=== PATIENT | male | born 1970 | race Caucasian/White ===

== ENCOUNTER 2021-08-13 09:40 | Day surgery (SDC) | payer BC ==
[~2021-08-13 09:40] MED LIST: Acetaminophen 325 MG Tab PO SCH; Lactated Ringers 1,000 ML IV SCH; Lidocaine 1%/Sod Bicarbonate in NS 8.4% 1 ML Syringe IDERM PRN; Midazolam 1 MG/ML 2 ML SDV ONE; Morphine 8 MG, EPINEPHrine 0.3 MG, Cefuroxime 750 MG, Ketorolac 30 MG, Sodium Chloride ... PRN; Pregabalin 25 MG Cap PO SCH; Propofol 200 MG/20 ML SDV ONE; Sodium Chloride 0.9% 10 ML Syringe FLUSH PRN; ceFAZolin 1 GM Vial ONE; fentaNYL 100 MCG/2 ML SDV ONE; oxyCODONE ER 10 MG TAB.ER PO SCH
--- NOTE | 2021-08-13 10:14 | PCM.PREANE ---
Preanesthetic Assessment - Procedure Proposed Procedure: Right total hip arthroplasty - Anesthesia/Transfusion/Family Hx Anesthesia History: Prior Anesthesia Without Reaction Family History of Anesthesia Reaction: No Transfusion History: No Prior Transfusion(s) Intubation History: Unknown - Review of Systems General: No Symptoms Pulmonary: No Symptoms Cardiovascular: No Symptoms Gastrointestinal: No Symptoms Neurological: No Symptoms Other: Reports: Diabetes - Physical Assessment NPO Status Date: 08/12/21 NPO Status Time: 20:00 Vital Signs: 133/93 HR 74 97.4 RR 20 96% RA Height: 1.98 m Weight: 149.7 kg ASA Class: 2 Mental Status: Alert & Oriented x3 Airway Class: Mallampati = 2 Dentition: Reports: [place]aboo(s), Caries Thyro-Mental Finger Breadths: 3 Mouth Opening Finger Breadths: 3 ROM/Head Extension: Full Lungs: Clear to Auscultation, Normal Respiratory Effort Cardiovascular: Regular Rate, Regular Rhythm, No Murmurs - Lab Values: Labs reviewed and okay to proceed - Imaging/EKG Impressions: EKG NSR HR 78 Chest x-ray 07/26/21 no active disease - Allergies Allergies/Adverse Reactions: Allergies Allergy/AdvReac Type Severity Reaction Status Date / Time allopurinol Allergy Cannot Verified 08/10/21 13:40 Remember - Anesthesia Plan Med Last Dose Date: 08/13/21 - Acknowledgements Anesthesia Type Planned: General Anesthesia, Spinal Pt an Appropriate Candidate for the Planned Anesthesia: Yes Alternatives and Risks of Anesthesia Discussed w Pt/Guardian: Yes Pt/Guardian Understands and Agrees with Anesthesia Plan: Yes PreAnesthesia Questionnaire HEENT History: Reports: Impaired Vision Cardiovascular History: Reports: Blood Clots/VTE/DVT, High Cholesterol, Hypertension Other Cardiovascular History: hx DVT LLE 2014, not on any blood thinners Respiratory History: Reports: None Gastrointestinal History: Reports: GERD (well controlled), Other (See Below) (hyponatremia) Other Genitourinary History: Erectile dysfunction Musculoskeletal History: Reports: Gout Neurological History: Reports: Cerebral Palsy Psychiatric History: Reports: None Endocrine/Metabolic History: Reports: Diabetes, Type II Hematologic History: Reports: None Immunologic History: Reports: None Oncologic (Cancer) History: Reports: None Dermatologic History: Reports: None - Past Surgical History GI Surgical History: Reports: Hernia, Abdominal Dermatological Surgical History: Reports: Other (See Below) (bilat toenail removal) - SUBSTANCE USE Tobacco Use Status *Q: Former Tobacco User (quit 21 years ago) Tobacco Use Within Last Twelve Months: Snuff/Dip (Last time chewing was 08/12/21 at 1800) Second Hand Smoke Exposure: No Days Per Week of Alcohol Use: 4 Number of Drinks Per Day: 2 Total Drinks Per Week: 8 Recreational Drug Use History: No - HOME MEDS Home Medications: Home Meds Apixaban [Eliquis] 2.5 mg PO BID #84 tablet 08/10/21 [Rx] Cyclobenzaprine [Flexeril] 10 mg PO BID PRN #20 tab 08/10/21 [Rx] oxyCODONE 5 - 10 mg PO Q4H PRN #40 tab 08/10/21 [Rx] - CURRENT (IN HOUSE) MEDS Current Meds: Current Medications Acetaminophen (Acetaminophen 325 Mg Tab) 975 mg PO ONETIME VAHID Stop: 08/13/21 13:00 Morphine Sulfate 8 mg/Epinephrine HCl 0.3 mg/Cefuroxime Sodium 750 mg/Ketorolac Tromethamine 30 mg/Sodium Chloride 7.9 ml 0 mg .XX ASDIRECTED PRN PRN Reason: Pain Stop: 08/13/21 23:00 Lactated Ringer's (Ringers, Lactated) 1,000 mls @ 125 mls/hr IV ASDIRECTED VAHID Stop: 08/13/21 23:00 Lidocaine/Sodium Bicarbonate (Lidocaine 1%/Sod Bicarbonate In Ns 8.4% 1 Ml Syringe) 0.25 ml IDERM ONETIME PRN PRN Reason: Prior to IV Start Stop: 08/13/21 18:00 Oxycodone HCl (Oxycodone Er 10 Mg Tab.Er) 10 mg PO ONETIME VAHID Stop: 08/13/21 13:00 Pregabalin (Pregabalin 25 Mg Cap) 50 mg PO ONETIME VAHID Stop: 08/13/21 13:00 Sodium Chloride (Sodium Chloride 0.9% 10 Ml Syringe) 10 ml FLUSH ASDIRECTED PRN PRN Reason: Keep Vein Open Stop: 08/13/21 18:00 Discontinued Medications Cefazolin Sodium (Cefazolin 1 Gm Vial) Confirm Administered Dose 2 gm .ROUTE .STK-MED ONE Stop: 08/13/21 09:12 Fentanyl (Fentanyl 100 Mcg/2 Ml Sdv) Confirm Administered Dose 100 mcg .ROUTE .STK-MED ONE Stop: 08/13/21 09:12 Midazolam HCl (Midazolam 1 Mg/Ml 2 Ml Sdv) Confirm Administered Dose 2 mg .ROUTE .STK-MED ONE Stop: 08/13/21 09:13 Propofol (Propofol 200 Mg/20 Ml Sdv) Confirm Administered Dose 600 mg .ROUTE .STK-MED ONE Stop: 08/13/21 09:12
[2021-08-13] MEDS ORDERED: Vancomycin 1 GM SDV ONE (12:10)
[2021-08-13] MEDS ORDERED: ceFAZolin 1 GM Vial ONE (12:39)
[2021-08-13] MEDS ORDERED: Midazolam 1 MG/ML 2 ML SDV ONE (13:03)
[2021-08-13] MEDS ORDERED: Lactated Ringers 1,000 ML ONE ×2 (13:33→14:17)
[2021-08-13] MEDS ORDERED: Propofol 200 MG/20 ML SDV ONE ×5 (13:33→14:25)
[2021-08-13] MEDS ORDERED: Ketorolac 30 MG/ML SDV ONE (14:39)
[2021-08-13] MEDS ORDERED: Ondansetron 4 MG/2 ML SDV IVPUSH PRN (15:17)
[2021-08-13] MEDS ORDERED: fentaNYL 100 MCG/2 ML SDV IVPUSH PRN (15:17)
[2021-08-13] MEDS ORDERED: HYDROmorphone 0.5 MG/0.5 ML Syringe IVPUSH PRN (15:17)
--- NOTE | 2021-08-13 15:17 | PCM.POSTAN ---
POST ANESTHESIA ASSESSMENT - MENTAL STATUS Mental Status: Alert, Oriented - VITAL SIGNS Vital Signs: Last Vital Signs Temp 36.3 C 08/13/21 09:55 Pulse 74 08/13/21 09:55 Resp 20 08/13/21 09:55 BP 133/93 H 08/13/21 09:55 Pulse Ox 96 08/13/21 09:55 - RESPIRATORY Respiratory Status: Respiratory Rate WNL, Airway Patent, O2 Saturation Stable - CARDIOVASCULAR CV Status: Pulse Rate WNL, Blood Pressure Stable - GASTROINTESTINAL GI Status: No Symptoms - PAIN Pain Score: 0 - POST OP HYDRATION Hydration Status: Adequate & Stable
--- NOTE | 2021-08-13 16:18 | CR ---
Pelvis: AP view of the pelvis was obtained as well as lateral view of the right hip. Comparison: Prior right hip CT study of 07/27/21. Right hip prosthesis is seen. Components are aligned. Underlying bony structures are intact. Minimal soft tissue air is seen. Joint space narrowing is noted within the left hip. Impression: 1. Satisfactory postoperative radiographic appearance of recently placed right hip prosthesis. 2. Joint space narrowing is also seen within the left hip. Diagnostic code #2
--- NOTE | 2021-08-22 16:00 | PCM.OPNOTE ---
- General Post-Op/Procedure Note Date of Surgery/Procedure: 08/13/21 Operative Procedure(s): right total hip arthroplasty with lupe trino robotics Pre Op Diagnosis: right hip osteoarthrosis Post-Op Diagnosis: Same Anesthesia Technique: Local, MAC, Spinal Primary Surgeon: Jarett Durán Anesthesia Provider: Carol Brown Wet Sander: Mandi Hdez Wet Sander: Jaona Ruano EBL in mLs: 700 Complications: None Condition: Good Free Text/Narrative:: 56 36+5 6
--- NOTE | 2021-08-22 17:14 | OR ---
DATE OF OPERATION: 08/13/2021 SURGEON: Jarett Durán MD OPERATION PERFORMED: Right total hip arthroplasty with Mary [employer] robotics. PREOPERATIVE DIAGNOSIS: Right hip osteoarthrosis. POSTOPERATIVE DIAGNOSIS: Right hip osteoarthrosis. ANESTHESIA: Local MAC with spinal. ANESTHESIA PROVIDER: Carol Brown. ASSISTANTS: Mandi Hdez PA-C; and Joana Ruano LPN. ESTIMATED BLOOD LOSS: 700 mL. COMPLICATIONS: None. CONDITION: Stable. IMPLANTS: 1. Mary size 56 mm solid Tritanium II acetabular cup. 2. Mary size 36, +5 BIOLOX femoral head. 3. [place] size 6 Accolade II stem. DESCRIPTION OF PROCEDURE: The patient was identified in the preoperative holding area. Proper site was marked and identified by the surgeon. The patient was taken back to the operative theater, where after adequate anesthesia, the patient was placed in a left lateral decubitus position. Axillary roll was placed. All bony prominences were well padded. Pegs were then placed and well padded. The patient's gluteal fold was parallel to the floor. Right hip was then sterilely prepped and draped in the usual sterile fashion. OR time-out was performed. The patient received 2 g IV Ancef. At this time, three small poke hole incisions were made over the iliac crest three fingerbreadths posterior to the ASIS. Three 4.0 Schanz pins were then placed. Gl[place] Cesar robotic array was then placed down onto the iliac crest. Standard posterior incision was made. This was taken down to the IT band and gluteal fascia which was incised along the incisional length. Charnley retractor was then placed. Checkpoint was then placed in the greater trochanter for hip lengths and the hip lengths were measured using the [place] Cesar robotics. Takedown of the short external rotators was done from the level of the piriformis down to the lesser trochanter, and the hip was dislocated. Neck cut was completed and found to be adequate. Attention was turned to the acetabulum. Anterior and posterior acetabular retractors were placed. Circumferential removal of the pulvinar as well as labrum was done at this time. At this time, a checkpoint was placed on the superior rim of the acetabulum. 15 points were then obtained intra- articularly. Anterior and posterior horns of the acetabulum were marked and then 15 points were obtained extra-articularly. Three points on the iliac crest were marked at this time as well. The [employer] robotic arm was brought in and a 52 mm reamer was used to ream medially at 45 degrees of abduction and 20 degrees of anteversion. A 56 mm reamer was then placed and the ream again was undertaken per the [employer] robotic plan and all green was gone. The 56 mm Tritanium II acetabular cup was then placed on the Glendora Cesar robotic arm and was impacted in place in 45 degrees of abduction and 20 degrees of anteversion. The 36 mm flat liner was then impacted in place. Attention was turned to the femur. Box chisel was used out laterally. Starter awl was placed down the canal. Starting with 0 broach, I was able to broach up to a size 6. It was found to be rotationally and vertically stable. At this time, Gl[place]ora 36, +5 trial head was placed. Hip was relocated. It was found to have adequate tenriism of leg lengths and was stable throughout range of motion. Bone hook was used to dislocate the hip. Trial implants were removed. The size 6 Accolade II stem was then impacted into place and a 36, +5 BIOLOX femoral head was impacted onto the stem. Hip was then relocated. #5 Ethibond suture was used for closure of the short external rotators and capsule. 1 L of pulse lavage irrigation with Ancef was irrigated through the hip along with 400 mL of IrriSept irrigation. Topical tranexamic acid and vancomycin powder were applied. Periarticular injection was completed. #2 barbed suture was used for closure of the IT band and gluteal fascia, 2-0 Vicryl was used subcutaneously, and Prineo was used for skin closure. The patient had a sterile soft dressing applied and was sent to the PACU in stable condition. Please note, before closure, all Mary Mako robotic arrays and checkpoints were removed. MMODAL /[id number]
== END 2021-08-13 16:50 | disposition home or self-care (01) ==
LOC: JD.SDS 09:40
PROVIDERS: ATTEND Orthopaedic Surgery
DX: M16.11 Unilateral primary osteoarthritis, right hip (principal); I10 Essential (primary) hypertension; E11.9 Type 2 diabetes mellitus without complications; E78.5 Hyperlipidemia, unspecified; K21.9 Gastro-esophageal reflux disease without esophagitis; M10.9 Gout, unspecified; Z01.812 Encounter for preprocedural laboratory examination; Z20.822 Contact with and (suspected) exposure to COVID-19; Z88.8 Allergy status to other drugs, medicaments and biological substances; Z79.899 Other long term (current) drug therapy; Z98.890 Other specified postprocedural states
CPT/HCPCS: 27130; 36415; 73501; 82947; 86850; 86900; 86901; 87635; 97116; 97161; A9270; C1713; C1776; J0171; J0690; J0697; J1885; J2250; J2270; J2370; J2704; J3010; J3370; J7120; 01402; U0002